=== PATIENT | female | born 1980 | race Caucasian/White ===

== ENCOUNTER 2020-06-16 07:36 | Outpatient (CLI) | payer MEDICAID, SELFPAY ==
--- NOTE | 2020-06-16 07:52 | MM_ITS ---
WS: [id number] BILATERAL SCREENING DIGITAL MAMMOGRAM WITH CAD HISTORY: SCREENING COMPARISON: 05/28/2019, 05/10/2018 Bilateral CC and MLO views submitted. Computer aided detection analyzed. Breast composition: The breasts are heterogeneously dense, which may obscure small masses. No suspici ous masses, microcalcifications or architectural distortion. Benign calcification RIGHT breast. MM/[place] [id number] IMPRESSION: BI-RADS: 2-Benign FOLLOW UP: 1 Year Follow-up
== END 2020-06-16 07:37 | disposition home or self-care (01) ==
LOC: RADSHAW 07:38
PROVIDERS: PCP Nurse Practitioner Family; Visit Provider Nurse Practitioner Family
DX: Z12.31 Encounter for screening mammogram for malignant neoplasm of breast (principal)
CPT/HCPCS: 77067

== ENCOUNTER 2021-12-28 21:07 | Emergency (ER) | payer MEDICAID, SELFPAY ==
[2021-12-28 21:09] VITALS: BMI 24.5
[2021-12-28 21:12] VITALS: BP 117/84; PULSE 93; RESP 17; TEMP 36.7; O2SAT 100
--- NOTE | 2021-12-28 21:17 | ECG_ITS ---
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
--- NOTE | 2021-12-28 21:32 | XRR_ITS ---
PROCEDURE INFORMATION: Exam: XR Chest Exam date and time: 12/28/2021 9:36 PM Age: 41 years old Clinical indication: Shortness of breath; Additional info: SOB TECHNIQUE: Imaging protocol: Radiologic exam of the chest. Views: 1 view. COMPARISON: No relevant prior studies available. FINDINGS: Lungs: Unremarkable. No consolidation. Pleural spaces: Unremarkable. No pleural effusion. No pneumothorax. Heart/Mediastinum: Unremarkable. No cardiomegaly. Bones/joints: Unremarkable. XR/XR chest 1V portable [id number] IMPRESSION: No acute findings.
--- NOTE | 2021-12-28 21:33 | W.ED.SOB ---
HPI - SOB/Dyspnea General: Chief Complaint: Shortness of Breath/Dyspnea Stated Complaint: SOB\N\Shoulder Pain Time Seen by Provider: 12/28/21 21:22 Source: patient Mode of arrival: ambulatory Limitations: no limitations History of Present Illness: HPI Narrative: 41-year-old female who states that she has been having shortness of breath slight cough and congestion over the last 2 days she states she tested positive for COVID earlier last month was her symptoms resolved but states she been having dyspnea last 2 days she had some slight chest pains with her cough states she feels like that at times she just cannot get a breath in she had some nausea she is in no distress here. Associated symptoms: Deny abdominal pain, chest pain, fever(s), nausea or vomiting Review of Systems Const: Denies: fever(s), chills, body aches or change in appetite Eyes: Denies: blurry vision or eye discomfort ENMT: Denies: throat pain or dental pain Card: Denies: chest pain Resp: Reports: dyspnea and non-productive cough GI: Denies: abdominal pain, nausea, vomiting or diarrhea : Denies: dysuria Musc: Denies: neck pain or back pain Skin/Breast: Denies: rash Neuro: Denies: headache(s) Psych: Denies: depression Martínez/Lymph: Denies: easy bruising All/Imm: Denies: urticaria PFSH ED PFSH: Medical History (Updated 12/28/21 @ 23:23 by Alice Peterson MD) No pertinent past medical history Social History (Updated 12/28/21 @ 21:35 by Alice Peterson MD) Smoking and tobacco status: never smoked Physical Exam Const: COMMON NORMALS: no acute distress, patient oriented x3 and healthy appearing HENMT: COMMON NORMALS: normocephalic and atraumatic HEAD & SCALP: normocephalic and atraumatic Eye: COMMON NORMALS: Equal, round and reactive pupils present and EOMs intact bilaterally PUPIL: Yes Equal, round and reactive pupils present Neck/C-Spine: COMMON NORMALS: full ROM and supple Chest: COMMONS NORMALS: normal inspection of the chest and normal palpation of entire chest wall Resp: COMMON NORMALS: normal respiratory effort, No retractions, No use of accessory muscles and clear to auscultation bilaterally AUSCULTATION: clear to auscultation bilaterally Cardio: COMMON NORMALS: regular rate, regular rhythm and No murmurs present (Cardio) RATE: regular rate RHYTHM: regular rhythm GI: COMMON NORMALS: Normal to inspection, nondistended, normoactive bowel sounds present, Soft to palpation, non-tender and no masses PALPATION: Yes Soft to palpation Extremity: COMMON NORMALS: normal to inspection and full ROM Neuro: COMMON NORMALS: patient oriented x3, moves all extremities and no focal motor deficits Psych: COMMON NORMALS: mental status grossly normal, Normal thought process present and cooperative THOUGHT PROCESS: Normal thought process present Skin: COMMON NORMALS: no rashes or lesions noted and no wounds GENERAL SKIN EXAM: no rashes or lesions noted Course Vital Signs: Vital signs: Vital Signs Temperature 98.1 F 12/28/21 21:12 Pulse Rate 79 12/28/21 22:55 Respiratory Rate 16 12/28/21 22:55 Blood Pressure 117/84 12/28/21 21:12 Pulse Oximetry 100 12/28/21 22:55 Oxygen Delivery Me thod 12/28/21 22:55 MDM - SOB/Dyspnea Medical Decision Making Patient presents here with symptoms consistent with likely viral syndrome she is well-appearing here x-ray D-dimer blood work was all normal we will prescribe her Zofran for her nausea she is to follow-up with PCP and return if worsening she understands agrees to plan. Lab Data : 12/28/21 21:45 12/28/21 21:45 Labs/Radiology: Radiology Impressions Chest X-Ray 12/28/21 21:32 IMPRESSION: No acute findings. Laboratory Results WBC 12.2 10^3/uL (4.0-10.0) H 12/28/21 21:45 RBC 4.32 10^6/uL (4.1-5.3) 12/28/21 21:45 Hgb 14.2 g/dL (11.5-15.3) 12/28/21 21:45 Hct 40.5 % (37.0-47.0) 12/28/21 21:45 MCV 93.8 fl (81-99) 12/28/21 21:45 MCH 32.9 pg (28.0-34.0) 12/28/21 21:45 MCHC 35.1 g/dL (30.0-36.0) 12/28/21 21:45 RDW 11.8 % (12.1-15.1) L 12/28/21 21:45 Plt Count 231 10^3/cmm (130-400) 12/28/21 21:45 MPV 10.5 fL (7.4-10.4) H 12/28/21 21:45 Neut % (Auto) 73.0 % 12/28/21 21:45 Lymph % (Auto) 18.8 % 12/28/21 21:45 [place] % (Auto) 5.9 % 12/28/21 21:45 Eos % (Auto) 1.2 % 12/28/21 21:45 Baso % (Auto) 0.7 % 12/28/21 21:45 Neut # (Auto) 8.87 10^3/uL (1.8-7.7) H 12/28/21 21:45 Lymph # (Auto) 2.3 10^3/uL (0.8-4.8) 12/28/21 21:45 [place] # (Auto) 0.7 10^3/uL (0.2-0.9) 12/28/21 21:45 Eos # (Auto) 0.2 10^3/uL (0.0-0.8) 12/28/21 21:45 Baso # (Auto) 0.1 10^3/uL (0.0-0.1) 12/28/21 21:45 Nucleated RBC % (auto) 0 % 12/28/21 21:45 Nucleated RBCs # 0.0 /100WBC 12/28/21 21:45 D-Dimer 0.43 ug/mIFEU (0-0.59) 12/28/21 21:45 Sodium 137 mmol/L (136-145) 12/28/21 21:45 Potassium 3.1 mmol/L (3.5-5.1) L 12/28/21 21:45 Chloride 98 mmol/L (98-107) 12/28/21 21:45 Carbon Dioxide 24 mmol/L (22-29) 12/28/21 21:45 Anion Gap 18.1 (5-19) 12/28/21 21:45 BUN 7 mg/dL (6-20) 12/28/21 21:45 Creatinine 0.8 mg/dL (0.5-0.9) 12/28/21 21:45 GFR Calculation 78.3 mL/min (90-130) L 12/28/21 21:45 Glucose 106 mg/dL (65-115) 12/28/21 21:45 Calculated Osmolality 282 mOsm/kg (285-295) L 12/28/21 21:45 Calcium 9.5 mg/dL (8.5-10.5) 12/28/21 21:45 Total Bilirubin 1.1 mg/dL (0.15-1.2) 12/28/21 21:45 AST 17 U/L (0-32) 12/28/21 21:45 ALT 18 U/L (0-33) 12/28/21 21:45 Alkaline Phosphatase 61 U/L (35-105) 12/28/21 21:45 Troponin T Baseline 9 ng/L (0-10) 12/28/21 21:45 NT-Pro-B Natriuret Pep 191 pg/mL (0-125) H 12/28/21 21:45 Total Protein 7.3 g/dL (6.6-8.7) 12/28/21 21:45 Albumin 4.7 g/dL (3.5-5.2) 12/28/21 21:45 Globulin 2.6 g/dL (1.3-4.6) 12/28/21 21:45 EKG Data EKG 1: I personally reviewed and interpreted this EKG as follows: EKG Interpretation Date: 12/28/21 EKG interpretation time: 21:17 Interpretation: nsr hr [address] or t wave abnormalities qrs 81 qtc 413 Discharge Plan Discharge Patient Disposition: Home Clinical Impression: Upper respiratory infection, Vomiting Prescriptions: New ondansetron 4 mg tablet,disintegrating 4 mg PO Q6H PRN (Reason: nausea and vomiting) Qty: 14 0RF Discharge Orders: Discharge ED (Routine); Ordered 12/28/21 Ordered By: Alice Peterson Referrals: Shanique Choudhury FNP-C [Primary Care Provider] - 1-3 days Discharge Diet: Advance as tolerated Discharge Activity: Resume usual activity Patient Instructions: Acute Nausea and Vomiting (ED), Viral Syndrome (ED) Coding Level of Care Code ED Machine Taper for Chg Fwd Exam Comprehensive
[2021-12-28 21:40] VITALS: O2SAT 100
[2021-12-28 21:59] LABS: Basophils # 0.1 10^3/uL (0.0-0.1); Basophils % 0.7 %; Eosinophils # 0.2 10^3/uL (0.0-0.8); Eosinophils % 1.2 %; Hematocrit 40.5 % (37.0-47.0); Hemoglobin 14.2 g/dL (11.5-15.3); Lymphocytes # 2.3 10^3/uL (0.8-4.8); Lymphocytes % 18.8 %; Mean Corpuscular HGB Conc 35.1 g/dL (30.0-36.0); Mean Corpuscular Hemoglobin 32.9 pg (28.0-34.0); Mean Corpuscular Volume 93.8 fl (81-99); Mean Platelet Volume 10.5 fL (7.4-10.4); Monocytes # 0.7 10^3/uL (0.2-0.9); Monocytes % 5.9 %; Neutrophils # 8.87 10^3/uL (1.8-7.7); Nucleated Red Blood Cells % 0 %; Platelet Count 231 10^3/cmm (130-400); Red Blood Count 4.32 10^6/uL (4.1-5.3); Red Cell Distribution Width 11.8 % (12.1-15.1); White Blood Count 12.2 10^3/uL (4.0-10.0)
[2021-12-28 22:12] LABS: D Dimer 0.43 ug/mIFEU (0-0.59)
[2021-12-28 22:33] LABS: Alanine Aminotransferase 18 U/L (0-33); Albumin Level 4.7 g/dL (3.5-5.2); Alkaline Phosphatase 61 U/L (35-105); Aspartate Amino Transferase 17 U/L (0-32); Blood Urea Nitrogen 7 mg/dL (6-20); Calcium 9.5 mg/dL (8.5-10.5); Carbon Dioxide 24 mmol/L (22-29); Globulin 2.6 g/dL (1.3-4.6); Glomerular Filtration Rate 78.3 mL/min (90-130); Glucose 106 mg/dL (65-115); NT Pro B Type Natriuretic Pept 191 pg/mL (0-125); Total Bilirubin 1.1 mg/dL (0.15-1.2); Total Protein 7.3 g/dL (6.6-8.7)
[2021-12-28 22:48] LABS: Troponin(5th) Baseline 9 ng/L (0-10)
[2021-12-28 22:53] LABS: Anion Gap 18.1 (5-19); Chloride 98 mmol/L (98-107); Osmolality Calculated 282 mOsm/kg (285-295); Potassium 3.1 mmol/L (3.5-5.1); Sodium 137 mmol/L (136-145)
[2021-12-28] MEDS: ipratropium-albuterol 3 mL Neb INHALATION (22:53)
[2021-12-28 22:55] VITALS: PULSE 79; RESP 16; O2SAT 100
[2021-12-28] MEDS: dexamethasone 10 mg/mL INJ IVP (23:20)
[2021-12-28 23:37] VITALS: BP 121/78; PULSE 91; RESP 18; O2SAT 99
== END 2021-12-28 23:36 | disposition home or self-care (01) ==
PROVIDERS: Emergency Provider Emergency Medicine; PCP Nurse Practitioner Family
DX: J06.9 Acute upper respiratory infection, unspecified (principal); R11.11 Vomiting without nausea
CPT/HCPCS: 71045; 80053; 83880; 84484; 85025; 85378; 93005; 93010; 94640; 96374; 99285; J1100

== ENCOUNTER 2022-03-26 15:20 | Emergency (ER) | payer MEDICAID, SELFPAY ==
--- NOTE | 2022-03-26 15:24 | XRR_ITS ---
PROCEDURE INFORMATION: Exam: XR Left Hand Exam date and time: 03/26/2022 3:50 PM Age: 41 years old Clinical indication: Injury or trauma; Blunt trauma (contusions or hematomas); Hand; Left; Injury details: History--caught in wood splitter; Additional info: 5th digit hit by wood splitter TECHNIQUE: Imaging protocol: Radiologic exam of the Left hand. Views: 3 or more views. COMPARISON: No relevant prior studies available. FINDINGS: Bones/joints: Mildly displaced comminuted fracture of the mid and distal aspect of the 5th distal phalanx. The rest of the osseous structures of the hand are intact. Joint spaces are preserved. Soft tissues: Wound noted along the distal 5th digit. XR/XR hand LT min 3V* [id number] IMPRESSION: Mildly displaced comminuted fracture of the mid and distal aspects of the 5th distal phalanx.
[2022-03-26 15:26] VITALS: BP 145/88; PULSE 88; RESP 14; TEMP 36.8; O2SAT 100; BMI 23.6
--- NOTE | 2022-03-26 15:39 | ED_ITS ---
HPI - Extremity Problem General: Chief complaint: Extremity Injury, Upper Stated complaint: Left hand caught i log splitter Time Seen by Provider: 03/26/22 15:32 History of Present Illness: Patient is a 41-year-old female comes to the ED with left hand injury. Injury occurred just prior to arrival. Patient was working with a log splitter and her fifth digit on left hand got caught splitter. She now has 10 out of 10 pain in her pinky finger. There is an open wound to the distal end of pinky and a laceration to fourth digit on left hand as well. She is up-to-date on her tetanus. Associated symptoms: Deny chest pain, fever(s) or rash Review of Systems Const: Denies: fever(s), chills or fatigue Eyes: Denies: change in vision or eye discomfort ENMT: Denies: throat pain, odynophagia, nasal discharge or nasal congestion Card: Denies: chest pain, palpitations, edema, swelling of feet/ankles, dyspnea on exertion or orthopnea Resp: Denies: dyspnea, productive cough or non-productive cough GI: Denies: abdominal pain, nausea, vomiting, diarrhea, constipation or hematochezia : Denies: flank pain, dysuria or hematuria Musc: Reports: extremity pain (Left hand fifth pinky injury); Denies: neck pain, back pain or extremity swelling Skin/Breast: Denies: rash or new lesions Neuro: Denies: headache(s), numbness in extremities or weakness in extremities PFS ED PFSH: Medical History No pertinent family history No pertinent past medical history Social History Smoking and tobacco status: never smoked Physical Exam Const: COMMON NORMALS: patient oriented x3 and alert GENERAL APPEARANCE: cooperative and comfortable HENMT: COMMON NORMALS: normocephalic HEAD & SCALP: normocephalic MOUTH: Normal oral and palatal mucosa present THROAT: posterior oropharynx normal and uvula midline Neck/C-Spine: COMMON NORMALS: supple GENERAL: Yes normal visual inspection Resp: COMMON NORMALS: normal respiratory effort, No retractions, No use of accessory muscles and clear to auscultation bilaterally AUSCULTATION: clear to auscultation bilaterally Cardio: COMMON NORMALS: regular rate, regular rhythm, S1 normal heart sound present, S2 normal heart sound present, No gallops present (Cardio), No clicks present (Cardio), No murmurs present (Cardio) and Peripheral pulses 2+ throughout RATE: regular rate RHYTHM: regular rhythm HEART SOUNDS: S1 normal heart sound present and S2 normal heart sound present PERIPHERAL PULSES: Peripheral pulses 2+ throughout GI: COMMON NORMALS: Normal to inspection, nondistended, normoactive bowel sounds present, Soft to palpation, non-tender and no masses PALPATION: Yes Soft to palpation : COMMON NORMALS: Yes no CVA tenderness BLADDER/KIDNEY EXAM: Yes no CVA tenderness Back/Pelvis: COMMON NORMALS: no CVA tenderness Extremity: NARRATIVE EXTREMITY EXAM: Left hand?fifth digit?superficial irregular shaped laceration proximal of nailbed. No active bleeding noted. Distal end of fifth digit does have lateral angulation. Neurovascular tact distally. Left hand?fourth digit 2 cm linear laceration. No active bleeding noted. Neuro: COMMON NORMALS: patient oriented x3 SENSORIUM/ORIENTATION: Yes alert GAIT: Yes Normal gait present Skin: GENERAL SKIN EXAM: dry skin Procedures Laceration Laceration 1: Site: hand (Distal fifth digit) Side (If applicable): left Size (cm): 2 Description: irregular Depth: simple, single layer Local Anesthetic: lidocaine 2% (Digital block) Amount of anesthesia used (mL): 5 Pre-repair: irrigated extensively (Irrigated extensively normal saline and beta iodine) Skin layer closed with: nylon Size (cm): 4-0 Number of sutures: 2 Technique: simple, interrupted Laceration 2: Site: hand (Fourth digit) Side (If applicable): left Size (cm): 2 Description: linear Depth: simple, single layer Local Anesthetic: lidocaine 2% Amount of anesthesia used (mL): 3 Pre-repair: irrigated extensively (With normal saline and beta iodine.) Skin layer closed with: nylon Size (cm): 4-0 Number of sutures: 2 Technique: simple, interrupted Nerve Block Nerve Block 1: Time out performed: Yes Local Anesthetic: lidocaine 2% Amount of anesthesia used (mL): 5 Side: left Nerve Blocks: digital (Fifth digit) Procedure Successful: Yes Patient Tolerated Procedure: well Complications: none Course Vital Signs: Vital signs: Vital Signs Temperature 98.2 F 03/26/22 15:26 Pulse Rate 88 03/26/22 15:26 Respiratory Rate 14 03/26/22 15:26 Blood Pressure 145/88 03/26/22 15:26 Pulse Oximetry 100 03/26/22 15:26 Oxygen Delivery Me thod 03/26/22 15:26 MDM - Extremity (Nontraumatic) Medical Decision Making LeftPatient is a 41-year-old female comes to the ED with hand fifth and fourth digit injury. Patient got his left hand fifth and fourth digit struck by long splitter. Left hand?fifth digit?superficial irregular shaped laceration proximal of nailbed. No active bleeding noted. Distal end of fifth digit does have lateral angulation. Neurovascular tact distally. Left hand?fourth digit 2 cm linear laceration. No active bleeding noted. X-ray of left hand showed mildly displaced comminuted fracture of the mid and distal aspects of the fifth distal phalanx. All lacerations wounds were irrigated since with normal saline and beta iodine. Digital block with lidocaine 2% was used performed on fifth digit and then 2 sutures were placed to loosely close up laceration. Lidocaine 2% was used as local on the fourth digit laceration and 2 sutures were placed to close the wound as well. I placed an order with case management patient to be r eferred to Ortho for follow-up appointment this Tuesday or TuesdayMarch 29 or . Patient was given IV Ancef here in the ED and wounds were bandaged. Patient was stable for discharge home and told to follow-up with Ortho clinic on Tuesday, March 29. Instructed on how to care for wounds. Patient understood and agreed with plan. Lab Data Radiology Impressions Hand X-Ray 03/26/22 15:24 IMPRESSION: Mildly displaced comminuted fracture of the mid and distal aspects of the 5th distal phalanx. Discharge Plan Discharge Patient Disposition: Home Clinical Impression: Fracture, finger, distal phalanx Qualifiers: Encounter type: initial encounter Finger: little finger Fracture type: open Fracture alignment: displaced Laterality: left Qualified Code(s): S62.637B - Displaced fracture of distal phalanx of left little finger, initial encounter for open fracture Laceration of finger Qualifiers: Encounter type: initial encounter Finger: ring finger Damage to nail status: without damage Foreign body presence: without foreign body Laterality: left Qualified Code(s): S61.215A - Laceration without foreign body of left ring finger without damage to nail, initial encounter Condition: Stable Prescriptions: New cephalexin 500 mg capsule 500 mg PO Q6H 7 Days Qty: 28 0RF ibuprofen 800 mg tablet 800 mg PO Q8H PRN (Reason: pain) Qty: 30 0RF No Action ondansetron 4 mg tablet,disintegrating 4 mg PO Q6H PRN (Reason: nausea and vomiting) Qty: 14 0RF Discharge Orders: Discharge ED (Routine); Ordered 03/26/22 Ordered By: Randy Chandra Discharge Diet: Regular Discharge Activity: Limit activity as instructed Patient Instructions: Fractures - Phalanx (Finger), Finger Laceration (ED), Opioid Safety Activity Restrictions/Additional Instructions: Take full course of antibiotics as prescribed. Keep laceration site clean and dry. Leave bandage on pinky finger on and do not remove throughout the weekend. Call [facility] clinic on Tuesday morning to get an appointment set up for Tuesday or Tuesday. Clean daily with soap and water and then apply thin layer of triple antibiotic ointment on it and cover with bandage. Watch for signs of infection such as redness, warmth, increased tenderness and puslike drainage. If you see the signs of infection return to the ED, urgent care or PCP for reevaluation. call your PCP to schedule a follow-up appointment for reevaluation and suture removal in about 7-10 days. Continue taking all home meds. Follow discharge plans as discussed. You can return to the ED if symptoms worsen. Coding Level of Care Code ED Obstetrics/Gynecology Nurse for Arnol Block Exam Comprehensive
[2022-03-26] MEDS: HYDROcodone-acetaminophen 7.5-325 mg Tablet 1 TAB PO (15:57)
[2022-03-26] MEDS: ceFAZolin 2,000 MG in sodium chloride 0.9% (plus) 50 ML 100 MG IV (16:58)
[2022-03-26] MEDS: lidocaine 2% INJ 20 mL INJECTION (16:58)
[2022-03-26] MEDS: neomycin-poly-bacitracin oint 28 gm 1 APPLIC TOPICAL (17:59)
--- NOTE | 2022-03-29 11:43 | DCPLANNER ---
Addendum entered by Katia Rocha 04/01/22 09:26: Patient had a follow up appointment scheduled for 03.30.22 at ortho - patient did attend appointment. Original Note: advertising assistant manager had message to schedule a follow up appointment for patient with ortho. advertising assistant manager sent patients information to the front office staff at ortho. Patients information will be printed and reviewed. Clinic will call patient with appointment information.
== END 2022-03-26 18:20 | disposition home or self-care (01) ==
PROVIDERS: Emergency Provider Physician Assistant
DX: S62.637B Displaced fracture of distal phalanx of left little finger, initial encounter for open fracture (principal); S61.215A Laceration without foreign body of left ring finger without damage to nail, initial encounter; W31.89XA Contact with other specified machinery, initial encounter
CPT/HCPCS: 12002; 73130; 96365; 99284; J0690

== ENCOUNTER → 2022-03-30 09:07 | Outpatient (BNVA) | payer MEDICAID, SELFPAY | PROVIDERS: Visit Provider Orthopaedic Surgery | DX: S62.639A Displaced fracture of distal phalanx of unspecified finger, initial encounter for closed fracture (principal) | CPT/HCPCS: 73130 ==

== ENCOUNTER 2022-06-23 06:27 | Outpatient (CLI) | payer MEDICAID, SELFPAY ==
--- NOTE | 2022-06-23 06:30 | CT_ITS ---
WS: [id number] CT CHEST WITHOUT INTRAVENOUS CONTRAST HISTORY: pulmonary nodule/lung screening TECHNIQUE: Contiguous 5 mm axial imaging performed on the thorax. Coronal and sagittal reformats are submitted. All CT scans at [facility] use at least one of these dose optimization techniques: automated exposure control; mA and/or kV adjustment per patient size (includes targeted exams where dose is matched to clinical indication); or iterative reconstruction. CONTRAST: None DLP: 233.15 mGy.cm COMPARISON: Head CT 2021, prior chest CT 01/26/2022 Lungs and central airway: Mild pulmonary hyperexpansion. Spiculated nodule in the RIGHT middle lobe m easures 12 x 9 mm. This soft tissue nodule was previously described and suspicious on PET/CT imaging. No significant increase in size since 01/26/2022. Additional micronodules in the RIGHT upper lobe mary lou suring 3 mm are unchanged. No new or enlarging pulmonary mass or nodule. Pleura: Normal. No pleural effusion. Heart and pericardium: Normal size heart with no pericardial effusion. Mediastinum and flavio: No mediastinum or hilar adenopathy. Vessels: Normal size aorta. No significant plaque. Pulmonary artery is slightly enlarged measuring 3. 4 cm in diameter. Chest wall and lower neck: Focal calcification inferior lobe LEFT thyroid. Upper abdomen: No adrenal mass. Osseous structures: No destructive process. CT/CT chest con [id number] IMPRESSION: 1. No significant increase in size spiculated nodule RIGHT middle lobe measuri ng 12 x 9 mm. 2. No adenopathy. 3. Micronodules RIGHT upper lobe are unchanged since 01/26/2022. 4. Mild pulmonary artery dilatation.
== END 2022-06-23 06:28 | disposition home or self-care (01) ==
PROVIDERS: PCP Nurse Practitioner Family; Visit Provider Internal Medicine Pulmonary Disease
DX: R91.1 Solitary pulmonary nodule (principal)
CPT/HCPCS: 71250

== ENCOUNTER → 2022-09-02 08:47 | Outpatient (BNVA) | payer MEDICAID, SELFPAY | PROVIDERS: PCP Nurse Practitioner Family; Visit Provider Internal Medicine | DX: E07.9 Disorder of thyroid, unspecified (principal) | CPT/HCPCS: 36415; 84439; 84443; 84480; 86800 ==

== ENCOUNTER 2022-10-25 08:22 | Outpatient (CLI) | payer MEDICAID, SELFPAY ==
[2022-10-25 09:14] LABS: Free T4 Free Thyroxine 1.12 ng/dL (0.82-1.77); Thyroid Stimulating Hormone 0.59 uIU/mL (0.27-4.20)
[2022-10-26 23:04] LABS: T3 Total 100 ng/dL (76-181)
== END 2022-10-25 08:23 | disposition home or self-care (01) ==
LOC: LAB 08:32
PROVIDERS: PCP Nurse Practitioner Family; Visit Provider Internal Medicine
DX: E07.9 Disorder of thyroid, unspecified (principal)
CPT/HCPCS: 36415; 84439; 84443; 84480

== ENCOUNTER → 2022-12-20 14:57 | Outpatient (BNVA) | payer MEDICAID, SELFPAY | PROVIDERS: PCP Nurse Practitioner Family; Visit Provider Internal Medicine | DX: E07.9 Disorder of thyroid, unspecified (principal); E05.90 Thyrotoxicosis, unspecified without thyrotoxic crisis or storm; E04.1 Nontoxic single thyroid nodule | CPT/HCPCS: 36415; 84439; 84443; 84480 ==

== ENCOUNTER 2022-12-23 10:26 | Outpatient (CLI) | payer MEDICAID, SELFPAY ==
--- NOTE | 2022-12-23 11:00 | CT_ITS ---
WS: [id number] CT chest wo con [id number] HISTORY: 6 month F/U TECHNIQUE: Axial imaging performed through the thorax. Coronal and sagittal reformats are submitted. All CT scans at [facility] use at least one of these dose optimization techniques: automated exposure control; mA and/or kV adjustment per patient size (includes targeted exams where dose is mat ched to clinical indication); or iterative reconstruction. CONTRAST: None DLP: 201.38 mGy.cm COMPARISON: 06/23/2022, 12/29/2021, PET/CT 04/09/2022 Lungs and central airway: No significant interval change in size of the spiculated nodule in the righ t middle lobe which does abut the fissure. Nodule measures 11 x 10 x 12 mm. This nodule was PET/CT po sitive on prior exam from 04/09/2022. No additional mass or nodule or pneumonia. Pleura: Normal. No pl eural effusion. Heart and pericardium: Normal size heart with no pericardial effusion. Mediastinum and flavio: No mediastinum or hilar adenopathy. Vessels: Normal size aortic and pulmonary artery. No coronary artery calcifications. Chest wall and lower neck: No soft tissue masses. Upper abdomen: Normal. Osseous structures: Mild increase in thoracic kyphosis and mild curvature. No interval change or dest ruction of the vertebral bodies. IMPRESSION: 1. Stable spiculated nodule right middle lobe measures 11 x 10 x 12 mm. Not significantly changed si nce 04/09/2022. 2. No adenopathy. 3. No additional pulmonary nodules or masses.
== END 2022-12-23 10:27 | disposition home or self-care (01) ==
PROVIDERS: PCP Nurse Practitioner Family; Visit Provider Internal Medicine Pulmonary Disease
DX: R91.1 Solitary pulmonary nodule (principal)
CPT/HCPCS: 71250

== ENCOUNTER 2023-06-14 08:45 | Outpatient (CLI) | payer MEDICAID, SELFPAY ==
[2023-06-14 09:32] LABS: Free T4 Free Thyroxine 1.24 ng/dL (0.82-1.77); Thyroid Stimulating Hormone 0.44 uIU/mL (0.27-4.20)
[2023-06-15 10:41] LABS: T3 Total 133 ng/dL (76-181)
== END 2023-06-14 08:46 | disposition home or self-care (01) ==
LOC: LAB 08:47
PROVIDERS: PCP Nurse Practitioner Family; Visit Provider Internal Medicine
DX: E07.9 Disorder of thyroid, unspecified (principal); E05.90 Thyrotoxicosis, unspecified without thyrotoxic crisis or storm; E04.1 Nontoxic single thyroid nodule
CPT/HCPCS: 36415; 84439; 84443; 84480

== ENCOUNTER 2023-07-04 14:40 | Outpatient (CLI) | payer MEDICAID, SELFPAY ==
--- NOTE | 2023-07-04 15:15 | US_ITS ---
WS: [id number] THYROID ULTRASOUND HISTORY: E04.1 - Nontoxic single thyroid nodule COMPARISON: None available. Right lobe: 1.2 cm x 1.1 cm x 4.1 cm (w x ap x l). Volume: 2.5 cm3. Normal size and echotexture. No significant are dominant nodules are present. Left lobe: 1.6 cm x 1.7 cm x 4.6 cm (w x ap x l). Volume: 6.1 cm3. Normal sized gland. There is a single nodule with coarse calcification and shadowing in the mid gland . Nodule measures 1.1 x 0.9 x 0.9 cm. There is a solid component and calcified component. There is in creased vascularity. Isthmus: 0.2 cm. IMPRESSION: 1. TI-RADS 4; mid LEFT thyroid nodule. Recommendation is to follow yearly by ultrasound as this nodu le is less than 1.5 cm. Recommend yearly evaluation. 2. Negative RIGHT thyroid.
--- NOTE | 2023-07-04 17:00 | CT_ITS ---
WS: [id number] CT chest wo con [id number] HISTORY: R91.1 - Solitary pulmonary nodule TECHNIQUE: Axial imaging performed through the thorax. Coronal and sagittal reformats are submitted. All CT scans at [facility] use at least one of these dose optimization techniques: automated exposure control; mA and/or kV adjustment per patient size (includes targeted exams where dose is mat ched to clinical indication); or iterative reconstruction. CONTRAST: None DLP: 277.05 mGy.cm COMPARISON: PET/CT 04/09/2022, CT chest 12/29/2021, 01/26/2022 and 12/23/2022 Lungs and central airway: Reidentified is a spiculated RIGHT middle lobe nodule which abuts the RIGHT major fissure. This nodule measures 13 x 10 x 10 mm and has remained relatively stable in size since 12/29/2021. This nodule is positive on recent PET/CT from 04/09/2022 although no increased in size. Ch ronic emphysema. No additional mass or pulmonary nodule. Pleura: Normal. No pleural effusion. Heart and pericardium: Normal size heart with no pericardial effusion. Mediastinum and flavio: No mediastinal or hilar adenopathy identified on this unenhanced exam. Vessels: Mild enlargement of the pulmonary artery. Normal aorta. Chest wall and lower neck: Coarse calcification measuring 4.4 mm in the mid thyroid. There was a thyr oid nodule that was positive on the recent PET/CT. Thyroid ultrasound on 07/04/2023 has been obtained. Upper abdomen: No abnormality on this unenhanced exam. Osseous structures: Curvature and scoliosis thoracic spine. IMPRESSION: 1. No significant increase in size of the PET/CT positive spiculated nodule in the RIGHT middle lobe measuring 13 x 10 x 10 mm. Mass has been identified on prior imaging studies and is relatively stabl e since 01/26/2022. Recommend continued close imaging and clinical follow-up. 2. No new mass or nodule. No pneumonia. 3. No adenopathy on this unenhanced exam. 4. Focal calcification LEFT thyroid.
== END 2023-07-04 14:41 | disposition home or self-care (01) ==
LOC: RAD 14:41
PROVIDERS: PCP Nurse Practitioner Family; Visit Provider Internal Medicine
DX: R91.1 Solitary pulmonary nodule (principal); E04.1 Nontoxic single thyroid nodule
CPT/HCPCS: 71250; 76536

== ENCOUNTER 2023-07-12 11:55 | Outpatient (CLI) | payer MEDICAID, SELFPAY ==
--- NOTE | 2023-07-12 12:30 | PETR_ITS ---
PROCEDURE INFORMATION: Exam: PET/CT Skull Base to Mid-thigh Exam date and time: 07/12/2023 1:20 PM Age: 43 years old Clinical indication: Abnormal findings; 1. No significant increase in size of the pet/ct positive spiculated nodule in the right middle. Lobe measuring 13 x 10 x 10 mm. Mass has been identified on prior imaging studies and is relatively. Stable since 01/26/2022. Recommend continued close imaging and clinical follow-up. ; Additional info: R91.1 - solitary pulmonary nodule LABS AND CLINICAL REPORTS: Glucose: 82 mg/dl Treatment strategy for malignancy (PET staging): Initial Staging (PI) TECHNIQUE: Imaging protocol: Following at least four-hour fasting and following the injection of radiopharmaceutical, low dose CT images were obtained. Then, PET images were obtained. Attenuation corrected images were constructed using the CT scan. Fused images of PET and CT were reviewed. The standardized uptake values (SUV) reported below are maximum values within a region of interest, expressed in gm/ml. Exam includes orbital meatal line to mid-thigh. Radiopharmaceutical: 13.21 mCi F-18 FDG (Fluorodeoxyglucose), IV. Time of imaging post radiopharmaceutical administration: 1 hour COMPARISON: CT PET Scan 04/09/2022 4:11 PM FINDINGS: Brain: Visualized brain has normal physiologic uptake. Pharynx: No abnormal uptake. Larynx: No abnormal uptake. Thyroid: There is mildly increased FDG uptake associated with a calcified left thyroid nodule with SUV max 2.8 previously 6.0. Lungs, pleura and trachea: Unchanged appearance of the 1.4 x 0.9 cm nodule in the right middle lobe, which now has no increased FDG uptake. Heart: Normal physiologic uptake. Mediastinal space: No abnormal uptake. Liver: No abnormal uptake. Gallbladder and bile ducts: No abnormal uptake. Pancreas: No abnormal uptake. Spleen: No abnormal uptake. Adrenal glands: No abnormal uptake. Kidneys and ureters: Normal physiologic uptake. Stomach and bowel: No abnormal uptake. Appendix: Appendectomy. Reproductive: Hysterectomy. Vasculature: No abnormal uptake. Lymph nodes: No abnormal uptake. No lymphadenopathy in the head, neck, chest, abdomen, pelvis, and extremities. Bones/joints: No abnormal uptake in the visualized axial and appendicular skeleton. Soft tissues: No abnormal uptake in the visualized head, neck, chest, abdomen, pelvis, and extremities. [facility] [id number] IMPRESSION: 1. Unchanged appearance of the 1.4 x 0.9 cm nodule in the right middle lobe, which now has no increased FDG uptake. 2. Redemonstrated mildly hypermetabolic calcified left thyroid nodule, which could reflect a primary thyroid malignancy. Recommend correlation with thyroid ultrasound.
== END 2023-07-12 11:56 | disposition home or self-care (01) ==
LOC: RAD 11:55
PROVIDERS: PCP Nurse Practitioner Family; Visit Provider Internal Medicine Pulmonary Disease
DX: R91.1 Solitary pulmonary nodule (principal); E04.1 Nontoxic single thyroid nodule
CPT/HCPCS: 78815; A9552

== ENCOUNTER 2023-07-26 10:49 | Outpatient (CLI) | payer MEDICAID, SELFPAY ==
--- NOTE | 2023-07-26 12:15 | US_ITS ---
WS: [id number] THYROID ULTRASOUND, limited HISTORY: Patient presents for biopsy of the LEFT thyroid nodule. COMPARISON: Prior imaging studies are reviewed. After discussing the prior imaging findings and the risks and complications with the patient she has elected to not proceed with the biopsy today. SUV value has decreased from the initial PET/CT imaging of 04/09/2022 to 07/12/2023. There is a calcifie d nodule in the central LEFT thyroid with increased vascularity. At this time patient has elected for additional imaging/follow-up to discuss the findings with Dr. Echols. Patient may benefit from surgical removal due to the increased vascularity. The calcification does in crease the risk for malignancy but also makes it more difficult to biopsy as the calcification is per ipheral. IMPRESSION: 1. No LEFT thyroid nodule biopsy will be performed today. Patient has elected to delay biopsy and to possibly obtain more information from Dr. Echols. 2. Patient may be more comfortable with an open surgical biopsy or follow-up ultrasound imaging. Pat ient will discuss status with Dr. Echols.
== END 2023-07-26 10:50 | disposition home or self-care (01) ==
LOC: RAD 10:50
PROVIDERS: PCP Nurse Practitioner Family; Visit Provider Internal Medicine
DX: E04.1 Nontoxic single thyroid nodule (principal)
CPT/HCPCS: 76536

== ENCOUNTER 2024-09-27 09:06 | Outpatient (CLI) | payer MEDICAID, SELFPAY ==
--- NOTE | 2024-09-27 09:11 | MM_ITS ---
WS: [id number] BILATERAL SCREENING DIGITAL TOMOSYNTHESIS MAMMOGRAM WITH CAD HISTORY: SCREEN COMPARISON: 06/16/2020, 05/30/2019 Bilateral CC and MLO views with tomosynthesis and synthetic mammography submitted. Computer aided detection analyzed. Breast composition: The breasts are heterogeneously dense, which may obscure small masses. No suspicious masses, microcalcifications or architectural distortion. Biopsy clip in the central RIGHT breast. There are a few benign calcifications in each breast. No suspicious mass or grouping of calcifications. MM/MM scr tomosynthesis [id number] IMPRESSION: BI-RADS: 2 - Benign FOLLOW UP: 1 Year Follow-up
== END 2024-09-27 09:07 | disposition home or self-care (01) ==
LOC: RAD 09:07
PROVIDERS: PCP Nurse Practitioner Family; Visit Provider Nurse Practitioner Family
DX: Z12.31 Encounter for screening mammogram for malignant neoplasm of breast (principal); R92.333 Mammographic heterogeneous density, bilateral breasts; R92.1 Mammographic calcification found on diagnostic imaging of breast
CPT/HCPCS: 77063; 77067